=== PATIENT | female | born 1950 | race Caucasian/White ===

== ENCOUNTER → 2020-07-26 | Outpatient (CLI) | payer MEDICARE ==
[~2020-07-26] MED LIST: ANAS1TAB2 PO; LISI-538 PO
[2020-07-26 17:35] LABS: PLATELET COUNT, AUTOMATED 275 10^3/uL (150-450)
[2020-07-26 17:47] LABS: INR 0.92; PROTHROMBIN TIME 12.6 SECONDS (12.5-14.3)
[2020-07-26 17:52] LABS: PARTIAL THROMBOPLASTIN TIME 32.9 SECONDS (24.2-38.5)
== END ==
LOC: M PLALAB 15:22
PROVIDERS: ATTEND Internal Medicine Pulmonary Disease
DX: R91.8 Other nonspecific abnormal finding of lung field (principal)

== ENCOUNTER 2020-08-06 06:19 | Day surgery (SDC) | payer MEDICARE ==
[~2020-08-06] VITALS: Ht 170.2 cm; Wt 70.8 kg
[~2020-08-06 06:19] MED LIST changes: +ALBUTEROL SULFATE 2.5 MG/0.5 ML INH NEB SOLN INH ONE; +LIDOCAINE 4% INJ 5ML AMP INH ONE; +LR 1,000 ML IV ONE
[2020-08-06] MEDS ORDERED: LIDOCAINE 1% SDV 30ML VIAL As Ordered ONE (07:10)
[2020-08-06] MEDS ORDERED: THROMBIN SOLN 20,000 UNITS KIT As Ordered ONE (07:10)
[2020-08-06] MEDS ORDERED: EPINEPHrine 1MG/ML INJ 30ML MD-VIAL As Ordered ONE (07:11)
[2020-08-06] MEDS ORDERED: LIDOCAINE 4% TOPICAL SOLN 50 ML BTL As Ordered ONE (07:11)
[2020-08-06] MEDS ORDERED: CETACAINE SPRAY 5GM As Ordered ONE (07:11)
[2020-08-06] MEDS ORDERED: LIDOCAINE VISCOUS 2% SOLN 15ML UDC As Ordered ONE (07:11)
[2020-08-06] MEDS ORDERED: MIDAZOLAM INJ 2MG/2ML VIAL (J2250 PER 1MG) As Ordered ONE (07:20)
[2020-08-06] MEDS ORDERED: LIDOCAINE 2% 100MG/5ML SDV (FOR ANES.) As Ordered ONE (07:20)
[2020-08-06] MEDS ORDERED: fentaNYL 100 MCG/2 ML INJECTION (J3010) As Ordered ONE ×2 (07:20→08:02)
[2020-08-06] MEDS ORDERED: propofoL 200 MG/20 ML VIAL As Ordered ONE (07:20)
[2020-08-06] MEDS ORDERED: ROCURONIUM BROMIDE 50 MG/5 ML VIAL As Ordered ONE (07:21)
[2020-08-06] MEDS ORDERED: ONDANSETRON 4MG/2ML VIAL As Ordered ONE (07:21)
[2020-08-06] MEDS ORDERED: ACETAMINOPHEN 1000MG 100ML IV BTL (OFIRMEV) (J0131 PER 10MG) As Ordered ONE (08:05)
[2020-08-06] MEDS ORDERED: SUGAMMADEX SODIUM 500 MG/5 ML VIAL (BRIDION) As Ordered ONE (08:06)
[2020-08-06] MEDS ORDERED: METOCLOPRAMIDE INJ 10MG/2ML VIAL (J2765 PER 1) As Ordered ONE (08:10)
[2020-08-06] MEDS ORDERED: EPINEPHrine 1MG/10ML SYRINGE 1.5IN As Ordered ONE (08:23)
--- NOTE | 2020-08-06 08:52 | RO ---
OPERATIVE NOTE DATE OF OPERATION: 08/06/2020 PREOPERATIVE DIAGNOSIS: Right upper lobe nodule and mediastinal and hilar adenopathy. POSTOPERATIVE DIAGNOSIS: Right upper lobe nodule and mediastinal and hilar adenopathy with chronic obstructive bronchitis. PROCEDURE: Fiberoptic bronchoscopy with endobronchial ultrasound, fine needle aspirate of subcarinal node and fluoroscopic examination. SURGEON: Vic Anderson M.D. ANESTHESIA: General. Informed consent was obtained prior to the procedure. OPERATIVE FINDINGS: 1. Subcarinal adenopathy. 2. Diffuse changes of chronic bronchitis. DESCRIPTION OF PROCEDURE: After the patient was identified and the above anesthesia given, the fiberoptic bronchoscope was passed via the existing endotracheal tube. The tube was found to be in good position. The jillian was broadened, especially posteriorly. It did not move well. Both mainstem bronchi widely patent. In a sequential fashion, upper, middle, and lower lobes of the right and upper and lower lobes of the left were examined. All were widely patent. No focal endobronchial mucosal abnormalities were identified. Diffuse changes of chronic bronchitis were noted. Using the endobronchial ultrasound, the subcarinal node was identified. Several passes were made with endobronchial ultrasound but only minimal specimen was obtained. I then changed back to the regular bronchoscope. Using a #20 gauge Gilman needle, multiple passes were made with good cellular return. When adequate hemostasis was assured, the scope was then withdrawn and the procedure terminated. Fluoroscopic examination done immediately post-procedure showed no evidence of pneumothorax. Care was then turned over to anesthesia for awakening and extubation. No immediate complications of the procedure were identified. Pathology is pending at the time of this dictation.
[2020-08-06] MEDS ORDERED: LR 1,000 ML IV SCH (09:00)
[2020-08-06] MEDS ORDERED: ONDANSETRON 4MG/2ML VIAL IV PRN (09:00)
[2020-08-06] MEDS ORDERED: PERCOCET 5MG/325MG TAB PO PRN (09:00)
[2020-08-06] MEDS ORDERED: fentaNYL 100 MCG/2 ML INJECTION (J3010) IV PRN (09:00)
[2020-08-06 09:40] VITALS: BP 132/77
== END 2020-08-06 09:40 | disposition home or self-care (01) ==
LOC: M SDC 06:19
PROVIDERS: ATTEND Internal Medicine Pulmonary Disease
DX: C77.1 Secondary and unspecified malignant neoplasm of intrathoracic lymph nodes (principal); J41.8 Mixed simple and mucopurulent chronic bronchitis; Z85.3 Personal history of malignant neoplasm of breast; I10 Essential (primary) hypertension; Z79.899 Other long term (current) drug therapy; Z92.21 Personal history of antineoplastic chemotherapy; Z92.23 Personal history of estrogen therapy; Z87.891 Personal history of nicotine dependence
CPT/HCPCS: 31652; 76000; 88173; 88305; 88341; 88342; J0131; J2250; J2405; J2765; J3010

== ENCOUNTER 2024-01-27 08:58 | Day surgery (SDC) | payer MEDICARE ==
[~2024-01-27] VITALS: Ht 170.2 cm; Wt 61.3 kg
[2024-01-27] MEDS: EPINEPHrine 1MG/10ML SYRINGE 1.5IN As Ordered ONE (07:08)
[~2024-01-27 08:58] MED LIST changes: +ALBU8.5H INH; -ALBUTEROL SULFATE 2.5 MG/0.5 ML INH NEB SOLN INH ONE; +CARV12.5 PO; +DRAM50TA9 PO; -LIDOCAINE 4% INJ 5ML AMP INH ONE; -LISI-538 PO; +LISI20TA33 PO; -LR 1,000 ML IV ONE
[2024-01-27] MEDS: LR 1,000 ML IV SCH (09:30)
[2024-01-27] MEDS ORDERED: MIDAZOLAM INJ 2MG/2ML VIAL As Ordered ONE (10:20)
[2024-01-27] MEDS ORDERED: ROCURONIUM BROMIDE 50MG/5ML VIAL As Ordered ONE (10:20)
[2024-01-27] MEDS: ALBUTEROL SULFATE 2.5MG/0.5ML INH NEB SOLN INH ONE (10:31)
[2024-01-27] MEDS: LIDOCAINE PRES-FREE 2% 10ML AMP INH ONE (10:31)
[2024-01-27] MEDS ORDERED: fentaNYL 100 MCG/2 ML INJECTION As Ordered ONE (10:49)
[2024-01-27] MEDS ORDERED: LIDOCAINE 2% 100MG/5ML SDV (FOR ANES.) As Ordered ONE (11:09)
[2024-01-27] MEDS ORDERED: propofoL 200 MG/20 ML VIAL As Ordered ONE (11:09)
[2024-01-27] MEDS ORDERED: ONDANSETRON 4MG 2ML VIAL As Ordered ONE (11:10)
[2024-01-27] MEDS ORDERED: SUGAMMADEX SODIUM 500 MG/5 ML VIAL (BRIDION) As Ordered ONE (11:12)
[2024-01-27] MEDS: CETACAINE SPRAY 5GM As Ordered ONE (11:17)
[2024-01-27] MEDS ORDERED: ePHEDrine SULFATE 25 MG/5 ML(5MG/ML) SYRINGE As Ordered ONE (11:18)
[2024-01-27] MEDS ORDERED: PHENYLephrine 500MCG 5ML (100MCG/ML) SYRINGE As Ordered ONE (11:18)
[2024-01-27] MEDS ORDERED: fentaNYL 100 MCG/2 ML INJECTION IV PRN (11:30)
[2024-01-27] MEDS ORDERED: LR 1,000 ML IV SCH (11:30)
[2024-01-27] MEDS ORDERED: HYDROMORPHONE HCL 0.5 MG/ 0.5 ML SYRINGE IV PRN (11:30)
[2024-01-27] MEDS ORDERED: ONDANSETRON 4MG 2ML VIAL IV PRN (11:30)
[2024-01-27] MEDS ORDERED: oxyCODONE 5MG TAB PO PRN (11:30)
[2024-01-27 12:25] VITALS: BP 125/90; TEMP 97.6; O2SAT 97
== END 2024-01-27 12:55 | disposition home or self-care (01) ==
LOC: M SDC 08:58
PROVIDERS: ATTEND Internal Medicine Pulmonary Disease
DX: R59.1 Generalized enlarged lymph nodes (principal); Z91.013 Allergy to seafood; Z79.899 Other long term (current) drug therapy; Z87.891 Personal history of nicotine dependence
CPT/HCPCS: 31629; 31652; 31654; 88173; 88305; J1100; J2250; J2371; J2405; J3010